=== PATIENT | male | born 1990 | race Caucasian/White ===

== ENCOUNTER 2017-01-08 21:43 | Emergency (ER) | payer MEDICAID, OTHER ==
--- NOTE | 2017-01-08 21:59 | EDM.PDOC ---
ED HPI GENERAL MEDICAL PROBLEM - General Chief Complaint: Upper Extremity Injury/Pain Stated Complaint: PT HURT RT ELBOW Time Seen by Provider: 01/08/17 21:56 - History of Present Illness INITIAL COMMENTS - FREE TEXT/NARRATIVE: HISTORY AND PHYSICAL: History of present illness: Patient is a 26-year-old white male has a history of acute right elbow injury states he bumped it when he was getting out of bed he had prior surgery he denies other trauma or concern Review of systems: As per history of present illness and below otherwise all systems reviewed and negative. Past medical history: As per history of present illness and as reviewed below otherwise noncontributory. Surgical history: As per history of present illness and as reviewed below otherwise noncontributory. Social history: No reported history of drug or alcohol abuse. Family history: As per history of present illness and as reviewed below otherwise noncontributory. Physical exam: HEENT: Atraumatic, normocephalic, pupils reactive, negative for conjunctival pallor or scleral icterus, mucous membranes moist, throat clear, neck supple, nontender, trachea midline. Lungs: Clear to auscultation, breath sounds equal bilaterally, chest nontender. Heart: S1S2, regular, negative for clicks, rubs, or JVD. Abdomen: Soft, nondistended, nontender. Negative for masses or hepatosplenomegaly. Negative for costovertebral tenderness. Pelvis: Stable nontender. Genitourinary: Deferred. Rectal: Deferred. Extremities: Patient has scar noted on his right elbow from prior surgery is no crepitation or point tenderness neurovascular exam is unremarkable Neuro: Awake, alert, oriented. Cranial nerves II through XII unremarkable. Cerebellum unremarkable. Motor and sensory unremarkable throughout. Exam nonfocal. Diagnostics: X-ray right elbow Therapeutics: Sling Impression: #1 acute right elbow injury Definitive disposition and diagnosis as appropriate pending reevaluation and review of above. - Related Data Allergies Allergy/AdvReac Type Severity Reaction Status Date / Time guaifenesin [From Robitussin] Allergy Rash Verified 01/08/17 21:59 morphine Allergy Anaphylactic Verified 01/08/17 21:59 Shock Home Meds: Home Meds . [No Known Home Meds] 04/06/15 [History] Past Medical History - Past Surgical History Other Musculoskeletal Surgeries/Procedures:: hand, elbow Social & Family History - Tobacco Use Smoking Status *Q: Current Every Day Smoker Years of Tobacco use: 5 - Alcohol Use Days Per Week of Alcohol Use: 7 Number of Drinks Per Day: 5 Total Drinks Per Week: 35 - Recreational Drug Use Recreational Drug Use: Yes Drug Use in Last 12 Months: Yes Recreational Drug Type: Reports: Marijuana/Hashish ED ROS GENERAL - Review of Systems Review Of Systems: ROS reveals no pertinent complaints other than HPI. ED EXAM, GENERAL - Physical Exam Exam: See Below (Dictation) Course - Vital Signs Last Recorded V/S: Last Vital Signs Temp 36.6 C 01/08/17 21:59 Pulse 80 01/08/17 21:59 Resp 18 01/08/17 21:59 BP 127/62 01/08/17 21:59 Pulse Ox 97 01/08/17 21:59 - Orders/Labs/Meds Orders: Active Orders 24 hr Category Date Time Status Elbow Min 3V Rt [CR] Stat Exams 01/08/17 22:06 Taken Departure - Departure Time of Disposition: 22:25 Disposition: Home, Self-Care 01 Condition: good Clinical Impression: Elbow injury - Discharge Information Forms: ED Department Discharge Additional Instructions: The following information is given to patients seen in the emergency department who are being discharged to home. This information is to outline your options for follow-up care. We provide all patients seen in our emergency department with a follow-up referral. The need for follow-up, as well as the timing and circumstances, are variable depending upon the specifics of your emergency department visit. If you don't have a primary care physician on staff, we will provide you with a referral. We always advise you to contact your personal physician following an emergency department visit to inform them of the circumstance of the visit and for follow-up with them and/or the need for any referrals to a consulting specialist. The emergency department will also refer you to a specialist when appropriate. This referral assures that you have the opportunity for followup care with a specialist. All of these measure are taken in an effort to provide you with optimal care, which includes your followup. Under all circumstances we always encourage you to contact your private physician who remains a resource for coordinating your care. When calling for followup care, please make the office aware that this follow-up is from your recent emergency room visit. If for any reason you are refused follow-up, please contact the [facility] emergency department at and asked to speak to the emergency department charge nurse. [facility] [address], [address] [place] [address] Sling as directed Motrin or Tylenol as directed return as needed as discussed - My Orders Last 24 Hours: My Active Orders 01/08/17 22:06 Elbow Min 3V Rt [CR] Stat - Assessment/Plan Last 24 Hours: My Active Orders 01/08/17 22:06 Elbow Min 3V Rt [CR] Stat
[2017-01-09 02:44] VITALS: BP 125/59
--- NOTE | 2017-01-09 14:31 | CR ---
EXAM DATE: 01/08/17 PATIENT'S AGE: 26 Patient: FENG LOPEZ Facility: [place], [place] Site . Site : 1990 Study: XRay Extremity Right [id number]/29/2017 10:21:56 PM Ordering Physician: Grayson Velazquez Final Report: INDICATION: Elbow pain from injury TECHNIQUE: Elbow radiographs 3 views right COMPARISON: None FINDINGS: Bones: Alignment is normal. No acute fractures or aggressive osseous lesions seen. Previous resection of the radial head is noted. 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 No joint effusion is identified. Soft tissues: Unremarkable. No radiopaque foreign bodies are noted. IMPRESSION: 1. No acute osseous injuries are identified. Dictated by Ángel Cruz MD @ 01/08/2017 10:23:49 PM Dictated by: Ángel Cruz MD @ 01/08/2017 22:23:53 (Electronic Signature) Report Signed by Proxy. [facility]
== END 2017-01-08 22:36 | disposition home or self-care (01) ==
LOC: MW.ED 21:43
DX: S59.901A Unspecified injury of right elbow, initial encounter (principal); F17.210 Nicotine dependence, cigarettes, uncomplicated; Z88.5 Allergy status to narcotic agent; Z88.8 Allergy status to other drugs, medicaments and biological substances; W22.8XXA Striking against or struck by other objects, initial encounter
CPT/HCPCS: 73080-26-RT; 73080-RT; 99282; 99283; A4566

== ENCOUNTER 2019-06-25 13:36 | Emergency (ER) | payer SELFPAY ==
[2019-06-25] MEDS ORDERED: Diphtheria,Pertussis(Acell),Tetanus Vaccine 0.5 ML Syringe IM ONE (13:47)
[2019-06-25] MEDS ORDERED: Bacitracin Oint 1 GM U/D Packet TOP ONE (13:48)
[2019-06-25 13:53] VITALS: BP 131/99; PULSE 71
--- NOTE | 2019-06-25 13:53 | EDM.PDOC ---
ED HPI GENERAL MEDICAL PROBLEM - General Chief Complaint: Laceration Stated Complaint: laceration left hand Time Seen by Provider: 06/25/19 13:41 - History of Present Illness INITIAL COMMENTS - FREE TEXT/NARRATIVE: HISTORY AND PHYSICAL: History of present illness: The patient is a healthy 28-year-old male who is unsure of his last tetanus shot and presents after cutting his left thumb using a chop saw. He denies any preceding systemic issues or complaints and was in his usual state of good health before these events occurred while at work. He only sustained an injury to his left thumb and the remainder of the digits on the left hand as well as the itself are without any injuries. He is able to move the thumb flex extend and oppose and there is no numbness or tingling. Review of systems: As per history of present illness and below otherwise all systems reviewed and negative. Past medical history: As per history of present illness and as reviewed below otherwise noncontributory. Surgical history: As per history of present illness and as reviewed below otherwise noncontributory. Social history: No reported history of drug or alcohol abuse. Family history: As per history of present illness and as reviewed below otherwise noncontributory. Physical exam: General: Well-developed well-nourished male who is nontoxic and vital signs were noted by me HEENT: Atraumatic, normocephalic, negative for conjunctival pallor or scleral icterus, mucous membranes moist, throat clear, neck supple, nontender, trachea midline. Lungs: Clear to auscultation, breath sounds equal bilaterally, chest nontender. Heart: S1S2, regular rate and rhythm no overt murmurs Abdomen: Soft, nondistended, nontender. NABS Pelvis: Deferred Genitourinary: Deferred. Rectal: Deferred. Extremities: Atraumatic, full range of motion of all extremities with the exception of the left thumb where there is a 2.5 cm laceration, total length, seen at the PIP flexure along the medial aspect which has tissue loss and some subcutaneous fat emerging but no active bleeding. There is a 1 cm x 0.5 cm divot of tissue which is missing The remainder of the digits on the left hand are without defects deformities or injuries and at the thumb the patient has full flexion extension and opposition against resistance. Neurovascular unremarkable. Neuro: Awake, alert, oriented. Cranial nerves II through XII unremarkable. Cerebellum unremarkable. Motor and sensory unremarkable throughout. Exam nonfocal. Diagnostics: [] Therapeutics: Tdap, local wound care, bacitracin and tube gauze after suture repair, lidocaine without epinephrine Procedure note: After the wound was cleansed by nursing a digital block was performed with 1% lidocaine without epinephrine. The wound was explored and no foreign bodies appreciated. A small piece of tissue was debrided and the area was reexplored and skin edges cannot be reapproximated due to the skin loss. This was explained to the patient and dressing will be applied Impression: Laceration of left index finger with tissue loss Definitive disposition and diagnosis as appropriate pending reevaluation and review of above. left thumb Pain Score (Numeric/FACES): 8 - Related Data Allergies Allergy/AdvReac Type Severity Reaction Status Date / Time guaifenesin [From Robitussin] Allergy Rash Verified 06/25/19 13:44 morphine Allergy Anaphylactic Verified 06/25/19 13:44 Shock Home Meds: Home Meds . [No Known Home Meds] 04/06/15 [History] Past Medical History HEENT History: Reports: None Cardiovascular History: Reports: None Respiratory History: Reports: None Gastrointestinal History: Reports: None Genitourinary History: Reports: None Musculoskeletal History: Reports: None Neurological History: Reports: None Psychiatric History: Reports: None Endocrine/Metabolic History: Reports: None Hematologic History: Reports: None Immunologic History: Reports: None Oncologic (Cancer) History: Reports: None Dermatologic History: Reports: None - Past Surgical History Head Surgeries/Procedures: Reports: None HEENT Surgical History: Reports: Tonsillectomy Cardiovascular Surgical History: Reports: None Respiratory Surgical History: Reports: None GI Surgical History: Reports: None Male Surgical History: Reports: None Endocrine Surgical History: Reports: None Neurological Surgical History: Reports: None Musculoskeletal Surgical History: Reports: Other (See Below) Other Musculoskeletal Surgeries/Procedures:: hand, elbow Oncologic Surgical History: Reports: None Dermatological Surgical History: Reports: None Social & Family History - Family History Family Medical History: Noncontributory - Tobacco Use Smoking Status *Q: Current Every Day Smoker Years of Tobacco use: 12 Packs/Tins Daily: 1 - Caffeine Use Caffeine Use: Reports: Coffee - Recreational Drug Use Recreational Drug Use: Yes Recreational Drug Type: Reports: Marijuana/Hashish Recreational Drug Use Frequency: Rarely ED ROS GENERAL - Review of Systems Review Of Systems: Comprehensive ROS is negative, except as noted in HPI. ED EXAM, SKIN/RASH Exam: See Below (see Dictation) Course - Vital Signs Last Recorded V/S: Last Vital Signs Temp 36.4 C 06/25/19 13:41 Pulse 71 06/25/19 13:41 Resp 18 06/25/19 13:41 BP 131/99 H 06/25/19 13:41 Pulse Ox 97 06/25/19 13:41 - Orders/Labs/Meds Orders: Active Orders 24 hr Category Date Time Status Communication Order [RC] STAT Care 06/25/19 13:48 Active Vaccines to be Administered [RC] PER UNIT ROUTINE Care 06/25/19 13:47 Active Meds: Medications Discontinued Medications Generic Name Dose Route Start Last Admin Trade Name Mickie PRN Reason Stop Dose Admin Bacitracin 1 dose 06/25/19 13:48 06/25/19 14:04 Bacitracin Oint 1 Gm TOP 06/25/19 13:49 1 dose ONETIME ONE Administration Diphtheria/Tetanus/Acell Pertussis 0.5 ml 06/25/19 13:47 06/25/19 14:04 Adacel IM 06/25/19 13:48 0.5 ml .ONCE ONE Administration Lidocaine HCl 5 ml 06/25/19 13:47 06/25/19 14:04 Xylocaine-Mpf 1% INJECT 06/25/19 13:48 5 ml ONETIME ONE Administration Departure - Departure Time of Disposition: 14:21 Disposition: Home, Self-Care 01 Condition: Good Clinical Impression: Laceration of left thumb Qualifiers: Encounter type: initial encounter Damage to nail status: without damage Foreign body presence: without foreign body Qualified Code(s): S61.012A - Laceration without foreign body of left thumb without damage to nail, initial encounter - Discharge Information Forms: ED Department Discharge Additional Instructions: The following information is given to patients seen in the emergency department who are being discharged to home. This information is to outline your options for follow-up care. We provide all patients seen in our emergency department with a follow-up referral. The need for follow-up, as well as the timing and circumstances, are variable depending upon the specifics of your emergency department visit. If you don't have a primary care physician on staff, we will provide you with a referral. We always advise you to contact your personal physician following an emergency department visit to inform them of the circumstance of the visit and for follow-up with them and/or the need for any referrals to a consulting specialist. The emergency department will also refer you to a specialist when appropriate. This referral assures that you have the opportunity for followup care with a specialist. All of these measure are taken in an effort to provide you with optimal care, which includes your followup. Under all circumstances we always encourage you to contact your private physician who remains a resource for coordinating your care. When calling for followup care, please make the office aware that this follow-up is from your recent emergency room visit. If for any reason you are refused follow-up, please contact the [facility] emergency department at and ask to speak to the emergency department charge nurse. [facility] Primary care- Internal Medicine and Family [address] [address] The area clean and dry with mild soap and water pat dry and apply bacitracin or Neosporin. The skin will gradually regrow as long as you give it he opportunity in a clean environment. Do not use Band-Aids and try to use breathable gauze and keep open to air when you're home. Follow-up with your provider or one of ours in the clinic for reevaluation further care and return to ER as needed and as discussed - My Orders Last 24 Hours: My Active Orders 06/25/19 13:47 Vaccines to be Administered [RC] PER UNIT ROUTINE 06/25/19 13:48 Communication Order [RC] STAT - Assessment/Plan Last 24 Hours: My Active Orders 06/25/19 13:47 Vaccines to be Administered [RC] PER UNIT ROUTINE 06/25/19 13:48 Communication Order [RC] STAT
== END 2019-06-25 14:34 | disposition home or self-care (01) ==
LOC: MW.ED 13:36 → MW.CT 13:36
DX: S61.012A Laceration without foreign body of left thumb without damage to nail, initial encounter (principal); F17.210 Nicotine dependence, cigarettes, uncomplicated; Z23 Encounter for immunization; Z88.5 Allergy status to narcotic agent; Z88.8 Allergy status to other drugs, medicaments and biological substances; W27.0XXA Contact with workbench tool, initial encounter
CPT/HCPCS: 64450; 90471; 90715; 99282; J2001